=== PATIENT | male | born 1975 | race African-American/Black ===

== ENCOUNTER 2020-10-26 22:12 | Emergency (ER) | payer OTHER ==
[2020-10-26 23:22] LABS: BASOPHIL 0.2 % (0-2); EOSINOPHIL 0.2 % (0-5); HCT 42.3 % (42.0-52.0); HGB 13.9 g/dl (13.2-18.0); LYMPHOCYTE 5.2 % (15-48); MCH 31.9 pg (25.0-31.0); MCHC 32.9 g/dL (32.0-36.0); MONOCYTE 4.3 % (0-12); MPV 9.8 fL (6.0-9.5); NEUTROPHIL 89.6 % (41-80); NRBC 0; PLT 174 K/uL (150-400); RBC 4.36 M/uL (4.70-6.00); WBC 13.2 K/uL (4.0-10.5)
[2020-10-26 23:22] LABS: BILIRUBIN NEGATIVE (NEGATIVE); BLOOD TRACE-INTACT Ery/uL (NEGATIVE); CLARITY CLEAR (CLEAR); COLOR YELLOW (YELLOW); GLUCOSE (U) NORMAL (NORMAL); LEUKOCYTES NEGATIVE Leu/uL (NEGATIVE); NITRITE NEGATIVE (NEGATIVE); PROTEIN NEGATIVE (NEGATIVE)
[2020-10-26 23:34] LABS: URINARY WBC RARE
[2020-10-26 23:35] LABS: SQUAMOUS EPITHELIAL CELLS RARE
[2020-10-26 23:55] LABS: ALBUMIN 3.8 g/dL (3.4-5.0); BILIRUBIN - TOTAL 0.6 mg/dL (0.2-1.0); CREATININE 1.09 mg/dL (0.67-1.17); TOTAL PROTEIN 7.8 g/dL (6.4-8.2)
[2020-10-26 23:56] LABS: C-REACTIVE PROTEIN 1.4 mg/dL (<=0.90)
[2020-10-26 23:57] LABS: LACTIC ACID 2.3 mmol/L (0.4-1.9)
[2020-10-27 00:06] LABS: CORONAVIRUS 2019 SARS-COV-2 NEGATIVE (NEGATIVE); INFLUENZA A NAA NEGATIVE (NEGATIVE)
[2020-10-27] MEDS ORDERED: IBUPROFEN800 MG PO (02:06)
[2020-10-27] MEDS ORDERED: VIBRAMYCIN100 MG PO (02:06)
[2020-10-27] MEDS ORDERED: NORCO 5-325 TA1 EACH PO (02:06)
== END 2020-10-27 03:16 | disposition home or self-care (01) ==
LOC: FER 22:12
PROVIDERS: Emergency Medicine Emergency Medical Services
DX: M54.5 Low back pain (principal); L03.116 Cellulitis of left lower limb; R51.9 Headache, unspecified; R00.0 Tachycardia, unspecified; R60.0 Localized edema; E10.40 Type 1 diabetes mellitus with diabetic neuropathy, unspecified; I10 Essential (primary) hypertension; Z88.1 Allergy status to other antibiotic agents; Z20.822 Contact with and (suspected) exposure to COVID-19
CPT/HCPCS: 36415; 71045; 72110; 80053; 81001; 82009; 83605; 83690; 84484; 85025; 86140; 87040; 93005; J0696; J1885; J2270; J2405; J7030; U0002

== ENCOUNTER 2020-12-30 15:50 | Emergency (ER) | payer OTHER ==
[~2020-12-30 15:50] MED LIST: IBUPROFEN800 MG PO; NORCO 5-325 TA1 EACH PO; VIBRAMYCIN100 MG PO
[2020-12-30 19:02] LABS: BASOPHIL 0.2 % (0-2); EOSINOPHIL 0 % (0-5); HCT 43.4 % (42.0-52.0); HGB 14.1 g/dl (13.2-18.0); LYMPHOCYTE 2.4 % (15-48); MCH 30.7 pg (25.0-31.0); MCHC 32.5 g/dL (32.0-36.0); MCV 94.6 fL (78.0-100.0); MPV 10.6 fL (6.0-9.5); NEUTROPHIL 92.3 % (41-80); NRBC 0; PLT 192 K/uL (150-400); RBC 4.59 M/uL (4.70-6.00); RDW 13.4 % (11.5-14.0)
[2020-12-30 19:04] LABS: WBC 20.5 K/uL (4.0-10.5)
[2020-12-30 19:15] LABS: ALBUMIN 3.3 g/dL (3.4-5.0); BILIRUBIN - TOTAL 0.8 mg/dL (0.2-1.0); BUN/CREAT RATIO (CALC) 9.5 RATIO; CREATININE 1.16 mg/dL (0.67-1.17); GLOBULIN (CALCULATION) 4.2 g/dL; TOTAL PROTEIN 7.5 g/dL (6.4-8.2)
[2020-12-30 23:53] LABS: LACTIC ACID 2.3 mmol/L (0.4-1.9)
[2020-12-31 00:26] LABS: BILIRUBIN NEGATIVE (NEGATIVE); BLOOD 1+ Ery/uL (NEGATIVE); CLARITY CLEAR (CLEAR); COLOR YELLOW (YELLOW); GLUCOSE (U) NORMAL (NORMAL); LEUKOCYTES NEGATIVE Leu/uL (NEGATIVE); NITRITE NEGATIVE (NEGATIVE); PROTEIN NEGATIVE (NEGATIVE)
[2020-12-31] MEDS ORDERED: ZANAFLEX4 M1 PO (02:29)
[2020-12-31] MEDS ORDERED: ELIQUIS2.5 MG PO (02:29)
== END 2020-12-31 02:36 | disposition home or self-care (01) ==
LOC: FER 15:50
PROVIDERS: Emergency Medicine; Internal Medicine
DX: I82.402 Acute embolism and thrombosis of unspecified deep veins of left lower extremity (principal); R10.9 Unspecified abdominal pain; R60.0 Localized edema; E11.9 Type 2 diabetes mellitus without complications; I10 Essential (primary) hypertension; Z88.0 Allergy status to penicillin; Z88.1 Allergy status to other antibiotic agents
CPT/HCPCS: 36415; 71275; 80053; 81001; 83605; 84484; 85025; 87040; 93005; 93970; J1170; J2405; J2543; J3370; J7030; J7050; Q9967